=== PATIENT | male | born 1965 | race Caucasian/White ===

== ENCOUNTER 2025-02-08 12:11 | Inpatient (IN) | payer MEDICAID, SELFPAY ==
[2025-02-08] VITALS (7 sets, daily range): BP systolic 136–186; BP diastolic 78–107; PULSE 67–94; RESP 14–16; TEMP 36.6–37.2; O2SAT 94–99; BMI 27.2
--- NOTE | 2025-02-08 13:20 | PD.EDRME ---
Rapid Medical Screening Exam RME Arrival date/time: 02/08/25 12:11 Vital signs: Vital Signs Temperature 97.8 F 02/08/25 12:17 Pulse Rate 94 02/08/25 12:17 Respiratory Rate 16 02/08/25 12:17 Blood Pressure 136/87 H 02/08/25 12:17 Pulse Oximetry (%) 98 02/08/25 12:17 98% room air Vital signs reviewed by provider: Yes RME Narrative: 59-year-old male presents to the urgent care with complaint of weakness as well as a sensation of feeling impaired and not being able to pass stool x 2 days.
[2025-02-08 14:29] LABS: Basophils # (Auto) 0.1 Thou/mm3 (0.0-0.2); Basophils % (Auto) 0 % (0-2.5); Eosinophils # (Auto) 0.0 Thou/mm3 (0.0-0.5); Eosinophils % (Auto) 0 % (0-10); Hematocrit 49.0 % (41.0-53.0); Hemoglobin 16.5 g/dL (13.5-16.0); Immature Granulocytes Auto 0.11 Thou/mm3 (0.00-0.00); Lymphocytes # (Auto) 1.5 Thou/mm3 (1.0-4.8); Lymphocytes % (Auto) 7 % (10-50); Mean Corpuscular HGB Conc 33.7 g/dl (31.0-37.0); Mean Corpuscular Hemoglobin 29.1 pg (25.0-35.0); Mean Corpuscular Volume 86 fL (80-100); Monocytes # (Auto) 1.1 Thou/mm3 (0.0-0.8); Monocytes % (Auto) 5 % (0-12); Neutrophils # (Auto) 19.7 Thou/mm3 (1.8-7.7); Neutrophils % (Auto) 88 % (37-80); Nucleated Red Blood Cell # 0.00 Thou/mm3 (0.00-0.00); Nucleated Red Blood Cell % 0 /100 WBC (0); Platelet Count 392 Thou/mm3 (140-440); RDW Standard Deviation 42.2 fL (35.1-43.9); Red Blood Count 5.67 Miln/mm3 (4.50-5.90); White Blood Count 22.5 Thou/mm3 (3.8-10.6)
[2025-02-08 14:53] LABS: Alanine Aminotransferase 14 U/L (10-49); Albumin, Serum 4.8 gm/dL (3.5-5.0); Albumin/Globulin Ratio 1.6 (1.2-2.2); Alkaline Phosphatase 104 U/L (46-116); Anion Gap 13 (7-16); Aspartate Amino Transferase 18 U/L (0-34); BUN/Creatinine Ratio 19 Ratio (12-20); Bilirubin,Total 0.8 mg/dL (0.3-1.2); Blood Urea Nitrogen 43 mg/dL (9-23); Calcium 9.8 mg/dL (8.3-10.6); Calcium (Corrected) 9.8 mg/dL (8.5-10.1); Carbon Dioxide 28.8 mMol/L (20.0-31.0); Chloride 98 mMol/L (98-107); Creatinine (Component) 2.3 mg/dL (0.6-1.3); Estimated Creatinine Clearance 35.7 mL/min (>60); Globulin 3.0 gm/dL (2.3-3.5); Glucose 156 mg/dL (74-106); Lipase 39 U/L (12-53); Osmolality,Calculated 293 (275-295); Potassium 3.0 mMol/L (3.4-5.1); Sodium 140 mMol/L (136-145); Total Protein 7.8 gm/dL (5.7-8.2); eGFR 32 See Note
--- NOTE | 2025-02-08 17:53 | PC.NURSE ---
no answer called to be vital
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
[2025-02-08] MEDS: SODIUM CHLORIDE 0.9% 1000 ML 1,000 ML 999 ML IV (19:11)
[2025-02-08] MEDS: POTASSIUM CHLORIDE 10% 20 MEQ/15 ML UDC 40 MEQ GT (19:12)
--- NOTE | 2025-02-08 19:39 | XR_ITS ---
Examination: CT abdomen and pelvis without contrast. Coronal 3-D reconstructions. Sagittal 2-D reconstructions. Date and time of exam:February 08, 2025, 1921 hours INDICATIONS: Abdominal pain and rectal pain and vomiting today CTDI: vol (mGy): 8.65 DLP: (mGycm): 593. Technique: Axial images of the abdomen have been obtained, 3 mm slice thickness Intravenous contrast material has not been administered. Low dose protocols were performed. One or more of the following dose reduction techniques were used; automated exposure control, adjustment of the mA and/or KV according to patient size, use of iterative reconstruction technique. Findings: No focal liver or splenic lesions Distended gallbladder No pancreatic mass Mild nodular thickening left adrenal gland Left renal artery calcification No hydronephrosis. 20 mm fat-containing umbilical hernia Aortic calcification no aneurysmal dilatation Normal appendix No bowel obstruction Normal seminal vesicles No significant prostatomegaly No bladder mass Rectal wall is diffusely and significantly thickened, axial images 247 Fat-containing inguinal hernias Mild osteopenia IMPRESSION: Normal appendix No bowel obstruction Distended gallbladder, recommend hepatobiliary sonography follow-up Rectal wall is diffusely and significantly thickened, differential would include proctitis, rectal tumor not excluded, recommend direct inspection
[2025-02-08] MEDS: SODIUM CHLORIDE 0.9% 1000 ML 1,000 ML 100 ML IV (21:12)
[2025-02-08] MEDS: cefTRIAXone/D5w 1gm IV premix 1 GM/50 ML BAG IV (21:14)
--- NOTE | 2025-02-08 21:29 | PC.NURSE ---
Addendum entered by Tessy Ordaz RN 02/08/25 21:38: THIS RN INFORMED DE MARCO PATIENT UNABLE TO VOID SINCE ARRIVAL TO ER Original Note: THIS RN INFORMED DE MARCO OF PATIENTS BLOOD PRESSURE BEING ELEVATED. NO VERBAL ORDERS RECIEVED. PENDING ORDERS.
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
[2025-02-08] MEDS: RINGERS LACTATED 1000 ML 1,000 ML 999 ML IV (22:42)
[2025-02-09] VITALS (10 sets, daily range): BP systolic 132–194; BP diastolic 68–108; PULSE 60–109; RESP 12–18; TEMP 36.2–36.8; O2SAT 93–98; BMI 26.4
[2025-02-09] MEDS: hydrALAZINE INJ 20 MG/ML VIAL 10 MG IVP ×2 (00:01→17:02)
[2025-02-09 00:08] LABS: Procalcitonin 0.25 ng/ml (0.0-0.49); Thyroid Stimulating Hormone 1.24 uIU/mL (0.55-4.78)
[2025-02-09] MEDS: metroNIDAZOLE/NS 500 MG IVPB 500 MG/100 ML BAG 200 MG IV ×4 (00:56→22:52)
[2025-02-09 00:58] LABS: Collection Type, Urine Clean Catch; Squamous Epithelial Cell,Urine 0 /hpf (0-5)
[2025-02-09 01:14] LABS: Bilirubin,Urine Negative (Negative); Blood,Urine Negative (Negative); Clarity,Urine Clear (Clear/Hazy); Color,Urine Yellow (Lt Yel-Yel); Glucose, Urine 4+ (Negative); Hyaline Casts,Urine < 1 /hpf (0-1); Ketones,Urine Negative (Negative); Leukocyte Esterase,Urine Negative (Negative); Nitrite,Urine Negative (Negative); PH,Urine 5.5 (5.0-7.0); Protein,Urine Trace (Neg - Trace); RBC,Urine 1 /hpf (0-3); Specific Gravity,Urine 1.022 (1.001-1.035); Urobilinogen,Urine Negative mg/dL (0.0-1.0); WBC,Urine 1 /hpf (0-5)
[2025-02-09 01:19] LABS: Amphetamine/Methamp Scrn,U Negative (Negative); Barbiturate Screen,Urine Negative (Negative); Benzodiazepines Screen,Urine Negative (Negative); Benzoylecgonine Screen, Ur Negative (Negative); Fentanyl Screen,Urine Negative (Negative); Opiate Screen,Urine Negative (Negative); THC Screen,Urine Negative (Negative)
[2025-02-09] MEDS: CIPROFLOXACIN/D5w 400 MG IVPB 400 MG/200 ML BAG 200 MG IV ×3 (01:50→22:52)
--- NOTE | 2025-02-09 02:06 | PC.NURSE ---
per pt, family will bring in medications today for med rec
[2025-02-09 05:10] LABS: Basophils # (Auto) 0.1 Thou/mm3 (0.0-0.2); Basophils % (Auto) 0 % (0-2.5); Eosinophils # (Auto) 0.3 Thou/mm3 (0.0-0.5); Eosinophils % (Auto) 2 % (0-10); Hematocrit 40.0 % (41.0-53.0); Hemoglobin 13.1 g/dL (13.5-16.0); Immature Granulocytes Auto 0.05 Thou/mm3 (0.00-0.00); Lymphocytes # (Auto) 2.7 Thou/mm3 (1.0-4.8); Lymphocytes % (Auto) 19 % (10-50); Mean Corpuscular HGB Conc 32.8 g/dl (31.0-37.0); Mean Corpuscular Hemoglobin 28.5 pg (25.0-35.0); Mean Corpuscular Volume 87 fL (80-100); Monocytes # (Auto) 1.0 Thou/mm3 (0.0-0.8); Monocytes % (Auto) 7 % (0-12); Neutrophils # (Auto) 9.7 Thou/mm3 (1.8-7.7); Neutrophils % (Auto) 71 % (37-80); Nucleated Red Blood Cell # 0.00 Thou/mm3 (0.00-0.00); Nucleated Red Blood Cell % 0 /100 WBC (0); Platelet Count 296 Thou/mm3 (140-440); RDW Standard Deviation 41.6 fL (35.1-43.9); Red Blood Count 4.59 Miln/mm3 (4.50-5.90); White Blood Count 13.7 Thou/mm3 (3.8-10.6)
[2025-02-09 05:26] LABS: INR 1.0 (0.9-1.3); Partial Thromboplastin Time 31.6 Seconds (22.0-36.0); Prothrombin Time 11.2 Seconds (9.0-12.2)
[2025-02-09 05:29] LABS: Glucose Estimated Average 140 mg/dL (80-131); Hemoglobin A1C 6.5 % Hgb (4.8-6.0)
[2025-02-09 06:34] LABS: Alanine Aminotransferase 8 U/L (10-49); Albumin, Serum 3.8 gm/dL (3.5-5.0); Albumin/Globulin Ratio 1.7 (1.2-2.2); Alkaline Phosphatase 79 U/L (46-116); Anion Gap 9 (7-16); Aspartate Amino Transferase 15 U/L (0-34); BUN/Creatinine Ratio 19 Ratio (12-20); Bilirubin,Total 0.5 mg/dL (0.3-1.2); Blood Urea Nitrogen 36 mg/dL (9-23); Calcium 8.6 mg/dL (8.3-10.6); Calcium (Corrected) 8.8 mg/dL (8.5-10.1); Carbon Dioxide 27.0 mMol/L (20.0-31.0); Chloride 105 mMol/L (98-107); Creatinine (Component) 1.9 mg/dL (0.6-1.3); Estimated Creatinine Clearance 43.2 mL/min (>60); Globulin 2.2 gm/dL (2.3-3.5); Glucose 93 mg/dL (74-106); Magnesium 2.0 mg/dL (1.6-2.6); Osmolality,Calculated 289 (275-295); Phosphorous 2.3 mg/dL (2.4-5.1); Sodium 141 mMol/L (136-145); Total Protein 6.0 gm/dL (5.7-8.2); eGFR 40 See Note
[2025-02-09 06:43] LABS: Potassium 2.6 mMol/L (3.4-5.1)
[2025-02-09] MEDS: SODIUM CHLORIDE 0.9% 1000 ML 1,000 ML 100 ML IV (08:36)
[2025-02-09] MEDS: HEPARIN SOD INJ 5000 UNIT/ML VIAL SC ×2 (08:37→22:52)
--- NOTE | 2025-02-09 09:57 | PC.SS ---
[id number]-Pt is a 59 y/o M with PMHx significant for HFpEF, CVA, hypertension, CKD stage III, diabetes presenting with chief complaints of constipation x 2 days with associated rectal pain, admitted for proctitis and PAMELLA, as per medical provider H & P note. Pt is being treated for proctitis, fecal impaction and infection, rectal mass along with constipation. Pt is on IV antibiotics. At this time there is no d/c date. Per pts sister Lynn Fields [phone], she reports that for the past week, but has been unstable and not his norm. Lynn reports he has been walking unsteady and is incontinent. Lynn reports pt has been defecating on himself and stated, It is everywhere. Lynn reported that the person who care takes for the pt is their 91 yo mother who is not able to care for him. Lynn reported she tries to help, but she herself is ill and reports the pt is a burden on their family. Lynn suggested that a SNF would be better suited for the pt, as she and her mother are unable to care take for him. Lynn reported that the pt suffered from a stroke about a year ago and ever since then, he has not has use of his left arm, which makes it difficult to ambulate. Lynn reported the pt does not use DME because pts refuses to use it. Pt does not do his own ADLs, such as cooking and cleaning and she and her mother do it all for the pt. Pt is able to shower himself with assistance. Lynn reported the pt is a Full Code and she is the alternate Decision Maker if pt is not able to make his own decisions. Pts PCP is Dr. Reeves at [facility] [address] and his pharmacy is [facility]. Plan is to return home once d/c Alternate Decision maker: Lynn Fields [phone] Full Code
[2025-02-09] MEDS: POTASSIUM CHL 10 mEq IVPB 10 MEQ/100 ML BAG 100 MEQ IV ×6 (10:02→15:00)
[2025-02-09] MEDS: NAPH,KPH MBDB 1 PACKET (1.5 GM) PO ×2 (10:02→22:52)
--- NOTE | 2025-02-09 10:09 | ESPR_ITS ---
<Statement entered by Abdulaziz Hutson MD - 02/09/25 21:56> Pt is seen at bedside, states he is in significant pain in his rectum. Pt states the pain started 3 days ago and denies previous episodes of similar symptoms. Pt is passing gas however he states he has had a BM in several days (3 days atleast). Will continue monitor and pending GI recs. Patient was seen and examined by me personally. I have directly supervised and reviewed documentation by the team resident and agree with its findings. ------- Plan of care was discussed with the attending, Dr. Britt Hutson, PGY-2 Documentation for date of: 02/09/25 Subjective Subjective Interval history: Overnight events: No acute events overnight. Patient admitted overnight. Patient was seen and examined at bedside. AM vitals and labs reviewed. Patient's anal pain is not significantly improved compared to when he was in the ED. Patient still feels constipated. Passing gas well. Loose stool noticed around erythematous and tender anus. Otherwise no complaints at this time. Still pending home med rec. Review of systems otherwise negative except for what is mentioned above. Exam Vital Signs Temp Pulse Resp BP Pulse Ox O2 Del Method 97.1 F 74 16 150/87 H 95 Room Air 02/09/25 08:00 02/09/25 08:00 02/09/25 08:00 02/09/25 08:00 02/09/25 08:00 02/09/25 08:00 Narrative Exam Physical Exam: General: Alert, no acute distress. Skin: Warm, dry, intact, no obvious rash. Head: Normocephalic, atraumatic. Eye: Normal conjunctiva, PERRL. Throat: Oral mucosa moist. No obvious lesions in oropharynx. Cardiovascular: Regular rate and rhythm, no murmur, +S1/S2. Respiratory: Lungs are clear to auscultation, respirations unlabored, no crackles, no wheezing. Gastrointestinal: Soft, nontender, non-distended. No guarding or rebound tenderness. Extremities: No edema, no cyanosis, no clubbing. 2+ radial pulse bilaterally, 2+ pedal pulse bilaterally. Anus erythematous and tender with loose, brown stool visible in and around anus. Neuro: No focal deficits observed. Conversant, moving all extremities. No overt cerebellar signs/incoordination. Psychiatric: Cooperative, appropriate affect. Objective Labs 02/09/25 04:27 02/09/25 16:23 Labs: Laboratory Results - last 24 hr 02/08/25 02/08/25 02/09/25 14:04 22:30 00:50 WBC 22.5 H RBC 5.67 Hgb 16.5 H Hct 49.0 MCV 86 MCH 29.1 MCHC 33.7 RDW Std Deviation 42.2 Plt Count 392 Neut % (Auto) 88 H Lymph % (Auto) 7 L Desha % (Auto) 5 Eos % (Auto) 0 Baso % (Auto) 0 Neut # (Auto) 19.7 H Lymph # (Auto) 1.5 Desha # (Auto) 1.1 H Eos # (Auto) 0.0 Baso # (Auto) 0.1 Immature Gran # (Auto) 0.11 H Absolute Nucleated RBC 0.00 Immature Gran % 1 H Nucleated RBC % 0 PT INR APTT Sodium 140 Potassium 3.0 L Chloride 98 Carbon Dioxide 28.8 Anion Gap 13 BUN 43 H Creatinine 2.3 H Estim Creat Clear Calc 35.7 L eGFR 32 L BUN/Creatinine Ratio [address] Glu mg/dL Hemoglobin A1c Calculated Osmolality 293 Calcium 9.8 Corrected Calcium 9.8 Phosphorus Magnesium Total Bilirubin 0.8 AST 18 ALT 14 Alkaline Phosphatase 104 Total Protein 7.8 Albumin 4.8 Globulin 3.0 Albumin/Globulin Ratio 1.6 Lipase 39 Procalcitonin Cancelled 0.25 TSH 1.24 Ur Collection Type Clean Catch Urine Color Yellow Urine Clarity Clear Urine pH 5.5 Ur Specific [place] 1.022 Urine Protein Trace Urine Glucose (UA) 4+ A Urine Ketones Negative Urine Blood Negative Urine Nitrite Negative Urine Bilirubin Negative Urine Urobilinogen (Auto) Negative Ur Leukocyte Esterase Negative Urine RBC 1 Urine WBC 1 Ur Squamous Epith Cells 0 Urine Bacteria None Hyaline Casts < 1 Urine Opiates Screen Negative Urine Fentanyl Screen Negative Ur Barbiturates Screen Negative U Amphetamin/Meth Scrn Negative U Benzodiazepines Scrn Negative U Cocaine Metab Screen Negative U Marijuana (THC) Screen Negative 02/09/25 04:27 WBC 13.7 H D RBC 4.59 Hgb 13.1 L D Hct 40.0 L MCV 87 MCH 28.5 MCHC 32.8 RDW Std Deviation 41.6 Plt Count 296 D Neut % (Auto) 71 Lymph % (Auto) 19 Desha % (Auto) 7 Eos % (Auto) 2 Baso % (Auto) 0 Neut # (Auto) 9.7 H Lymph # (Auto) 2.7 Desha # (Auto) 1.0 H Eos # (Auto) 0.3 Baso # (Auto) 0.1 Immature Gran # (Auto) 0.05 H Absolute Nucleated RBC 0.00 Immature Gran % 0 Nucleated RBC % 0 PT 11.2 INR 1.0 APTT 31.6 Sodium 141 Potassium 2.6 L* Chloride 105 Carbon Dioxide 27.0 Anion Gap 9 BUN 36 H Creatinine 1.9 H Estim Creat Clear Calc 43.2 L eGFR 40 L BUN/Creatinine Ratio [address] Glu mg/dL 140 H Hemoglobin A1c 6.5 H Calculated Osmolality 289 Calcium 8.6 Corrected Calcium 8.8 Phosphorus 2.3 L Magnesium 2.0 Total Bilirubin 0.5 AST 15 ALT 8 L Alkaline Phosphatase 79 D Total Protein 6.0 Albumin 3.8 D Globulin 2.2 L Albumin/Globulin Ratio 1.7 Lipase Procalcitonin TSH Ur Collection Type Urine Color Urine Clarity Urine pH Ur Specific [place] Urine Protein Urine Glucose (UA) Urine Ketones Urine Blood Urine Nitrite Urine Bilirubin Urine Urobilinogen (Auto) Ur Leukocyte Esterase Urine RBC Urine WBC Ur Squamous Epith Cells Urine Bacteria Hyaline Casts Urine Opiates Screen Urine Fentanyl Screen Ur Barbiturates Screen U Amphetamin/Meth Scrn U Benzodiazepines Scrn U Cocaine Metab Screen U Marijuana (THC) Screen Quality Measures Quality Measures none Assessment & Plan Assessment Current Active Medications: Generic Name Dose Route Start Last Admin Trade Name Freq PRN Reason Stop Dose Admin Acetaminophen 650 mg 02/08/25 21:45 Acetaminophen 325 Mg Tablet PO 03/10/25 21:44 Q6H PRN Fever >100.4 or pain Hydrocodone Bitart/Acetaminophen 1 tab 02/08/25 21:45 Hydrocodone/Apap 5/325 Tablet PO 02/13/25 21:44 Q4HR PRN PAIN SCALE 4-10(Mod-Sev Dextrose 25 ml 02/08/25 21:45 Dextrose 50%-Water Inj 50 Ml Syringe IV 03/10/25 21:44 Q15MIN PRN BG 50-70 responsive npo pt Dextrose 50 ml 02/08/25 21:45 Dextrose 50%-Water Inj 50 Ml Syringe IV 03/10/25 21:44 Q15MIN PRN BG <50 OR BG <70 & pt unresponsive Glucagon 1 mg 02/08/25 21:45 Glucagon Inj 1 Mg Vial IM Q15MIN PRN BG <70, and no IV access Heparin Sodium (Porcine) 5,000 unit 02/09/25 09:00 02/09/25 08:37 Heparin Sod Inj 5000 Unit/Ml Vial SC 02/23/25 08:59 5,000 unit Q12HR AGA Administration Hydralazine HCl 10 mg 02/08/25 22:31 02/09/25 00:01 Hydralazine Inj 20 Mg/Ml Vial IVP 03/10/25 22:30 10 mg Q6HR PRN Administration SBP > 180 or DBP>100 Sodium Chloride 1,000 mls @ 100 mls/hr 02/08/25 20:34 02/09/25 08:36 Ns IV 03/10/25 20:33 100 mls/hr .Q10H AGA Administration Ciprofloxacin/Dextrose 400 mg in 200 mls @ 200 mls/hr 02/09/25 09:00 02/09/25 08:36 Cipro Ivpb IV 02/16/25 08:59 200 mls/hr Q12HR AGA Administration Metronidazole 500 mg in 100 mls @ 200 mls/hr 02/09/25 06:00 02/09/25 05:49 Flagyl 500 Mg Iv IV 02/16/25 05:59 200 mls/hr Q8HR AGA Administration Potassium Chloride 10 meq in 100 mls @ 100 mls/hr 02/09/25 08:53 02/09/25 10:02 Kcl Ivpb IV 02/09/25 14:52 100 mls/hr Q1H AGA Administration Insulin Human Lispro 0 unit 02/09/25 07:30 02/09/25 07:26 Insulin Lispro (Admelog) 1 Unit/0.01 Ml Unit SC 03/11/25 07:29 Not Given AC AGA Protocol Ondansetron HCl 4 mg 02/08/25 21:45 Ondansetron Inj 2 Mg/Ml Inj 2 Ml IVP 03/10/25 21:44 Q6H PRN NAUSEA OR VOMITING Protocol Potassium Phos/Sodium Phos 1 packet 02/09/25 09:00 02/09/25 10:02 Naph,Kp Mbdb 1 Packet (1.5 Gm) PO 02/09/25 21:01 1 packet BID [facility] Administration Plan Mr. Fields is a 59 year old male with a history of HFpEF (EF 55-60% 2022), HTN, T2DM, CKD stage III, and CVA who presented to [facility] ED on 02/08 for 2-3 days of constipation and rectal pain. The patient was admitted for proctitis and PAMELLA on CKD. #Proctitis #Constipation Patient presented to ED with ? Continue ciprofloxacin 400 mg IV every 12 hours [02/08--] ? Continue metronidazole 500 mg IV every 8 hours [02/08--] ? GI consulted, appreciate recommendations ? Patient put on clear liquid diet with renal, cardiac, and consistent low-carb modifications ? Blood culture collected 02/08, pending results ? [place] 5/325 as needed for pain #PAMELLA on CKD stage III, likely prerenal #Anuria (resolved) Patient presented to the ED with BUN 43, creatinine 2.3, GFR 32. Patient has a known history of CKD stage III. ? Continue strict I's and O's ? Avoid nephrotoxic medications ? Renally dose medications ? Monitor daily labs ? Patient made urine on 02/09 in the AM ? Bladder scan every 4 hour to identify if patient is retaining urine #Hypokalemia #Hypophosphatemia Patient presented to ED with potassium of 3.0, which later decreased to 2.6 on 02/09 a.m. labs. Patient also had phosphorus of 2.3. ? Potassium replenished on 02/09 with potassium chloride tablet 40 mill equivalents and started potassium chloride IV 60 mill equivalents ? Ordered renal panel for afternoon 02/09 ? Will continue to monitor with daily labs #Hypertensive urgency #Primary Hypertension Patient has a history of hypertension and hypertensive urgency. In the ED, the patient had a blood pressure of 186/101. ? Continue hydralazine 10 mg every 6 hours as needed if SBP >180 or DBP > 100 ? Will continue to monitor #HFpEF, EF 55-60% (2022) Patient has a history of heart failure that was initially managed in 2022. The patient had received an echocardiogram in 2022, which showed normal LV size and function, estimated ejection fraction of 55 to 60%, grade 2 diastolic dysfunction and mild LVH. ? Continue to monitor patient, pending med rec #Non-insulin dependent type 2 diabetes mellitus Patient has a history of diabetes. A1c of 6.5% on 02/09/2025. Pt takes Januvia 50mg and trulicity 0.75mg at home - Insulin sliding scale ordered - Hypoglycemia protocol ordered - Acu-checks ACHS #CVA without residual deficits Patient has history of CVA 1 year ago without residual deficits. Patient does not recall the medications he is taking. - Pending home med rec DVT Prophylaxis: Heparin GI Prophylaxis: N/A Bowel: N/A Diet: Carbohydrate consistent, cardiac, renal, clear liquid [place]: N/A Lines: Peripheral IV Antibiotics: Ciprofloxacin and Metronidazole (02/08--) Code Status: FULL Reason for Hospitalization: Proctitis and PAMELLA Other Barriers to Discharge: GI consultation Patient plan of care was discussed with the senior resident Dr. Hutson (PGY-2) and attending physician Dr. De La Torre. Rosendo Ramirez, PGY1 Attending Provider Attestation/Addendum I attest that I was physically present for the evaluation, physical examination, lab and imaging review of the patient with the residents. I discussed the case with the residents and agree with the findings and plans of care as documented above. Patient is a 59 years old male with past medical history of HFpEF, CVA, hypertension, CKD, diabetes mellitus who presented to the ED with complaint of constipation and rectal pain. Patient was then admitted overnight for management of proctitis, possible fecal impaction and PAMELLA on CKD. At bedside today, patient continues to complain of rectal pain whenever he is trying to have a bowel movement. His last bowel movement was 3 days ago but he has been passing gas. Denies any nausea or vomiting. Continues to be on IV ciprofloxacin and metronidazole for proctitis. Cultures are pending. Gastroenterology on board. WBC count has been downtrending. Kidney function has improved, BUN/creatinine of 31/1.9 today. Noted to have potassium of 2.6, phosphorus 2.3, repleted accordingly. Patient noted to be hypertensive, we will start antihypertensives. Started on sliding scale for diabetes mellitus. Keisha De La Torre MD
--- NOTE | 2025-02-09 15:14 | PC.NURSE ---
Spoke to Connie at [facility] medical records for pt Medication list, she will fax them over
[2025-02-09] MEDS: SENNA/DOCUSATE SOD 1 TAB TABLET PO (16:22)
[2025-02-09] MEDS: POLYETHYLENE GLYCOL 17 GM PACKET PO (16:22)
[2025-02-09 16:53] LABS: Albumin, Serum 3.9 gm/dL (3.5-5.0); Anion Gap 8 (7-16); BUN/Creatinine Ratio 16 Ratio (12-20); Blood Urea Nitrogen 31 mg/dL (9-23); Calcium 8.8 mg/dL (8.3-10.6); Calcium (Corrected) 8.9 mg/dL (8.5-10.1); Carbon Dioxide 27.6 mMol/L (20.0-31.0); Chloride 104 mMol/L (98-107); Creatinine (Component) 1.9 mg/dL (0.6-1.3); Estimated Creatinine Clearance 43.2 mL/min (>60); Glucose 88 mg/dL (74-106); Osmolality,Calculated 284 (275-295); Phosphorous 2.0 mg/dL (2.4-5.1); Potassium 3.9 mMol/L (3.4-5.1); Sodium 140 mMol/L (136-145); eGFR 40 See Note
--- NOTE | 2025-02-09 22:07 | PD.IMCONS ---
HPI Data of Consult Requesting Physician: Keisha De La Torre MD Primary Care Provider: Milton Bustamante PA-C Consult Narrative Reason for consult: Increasing constipation proctitis abnormal CTAP, rectal pain History of present illness: 59 years old male comes in for evaluation to the emergency room and subsequently got admitted for multiplicity of medical issues From a GI viewpoint patient has been having nausea and constipated CT scan of the abdomen pelvis without contrast showed rectal wall thickening possibility of a infiltrating carcinoma with stool impaction I have been consulted cc:: cc: Keisha De La Torre MD Review of Systems Review of Systems Systems Reviewed: All systems reviewed, normal except as documented Past Medical History Surgical History OTHER SURGICAL HX: As in the history of present illness Meds Home Medications and Allergies Home Medications ?Medication ?Instructions ?Recorded ?Confirmed ?Type No Known Home Medications 03/09/21 07/16/22 History Allergies Allergy/AdvReac Type Severity Reaction Status Date / Time No Known Allergies Allergy Verified 02/08/25 12:28 Exam Vital Signs Temp Pulse Resp BP Pulse Ox O2 Del Method 97.4 F 85 18 152/98 H 96 Room Air 02/09/25 20:00 02/09/25 20:00 02/09/25 20:00 02/09/25 20:00 02/09/25 20:00 02/09/25 20:00 Constitutional Comments: Chronically ill-appearing Routine Respiratory Exam Comments: Normal to auscultation Routine Abdominal Exam Comments: Soft nontender Results Labs 02/09/25 04:27 02/09/25 16:23 Labs: Short CBC 02/09/25 Range/Units 04:27 WBC 13.7 H D (3.8-10.6) Thou/mm3 Hgb 13.1 L D (13.5-16.0) g/dL Hct 40.0 L (41.0-53.0) % Plt Count 296 D (140-440) Thou/mm3 BMP 02/09/25 02/09/25 04:27 16:23 Sodium 141 140 Potassium 2.6 L* 3.9 D Chloride 105 104 Carbon Dioxide 27.0 27.6 BUN 36 H 31 H Creatinine 1.9 H 1.9 H Glucose 93 D 88 Calcium 8.6 8.8 Liver Function 02/09/25 02/09/25 Range/Units 04:27 16:23 Total Bilirubin 0.5 (0.3-1.2) mg/dL AST 15 (0-34) U/L ALT 8 L (10-49) U/L Alkaline Phosphatase 79 D (46-116) U/L Albumin 3.8 D 3.9 (3.5-5.0) gm/dL Urine 02/09/25 Range/Units 00:50 Urine Color Yellow (Lt Yel-Yel) Urine Clarity Clear (Clear/Hazy) Urine pH 5.5 (5.0-7.0) Ur Specific [place] 1.022 (1.001-1.035) Urine Protein Trace (Neg - Trace) Urine Glucose (UA) 4+ A (Negative) Assessment and Plan Additional Assessment & Plan Additional Plan: # Rectal pain # abnormal CT scan of the abdomen pelvis showing thickening of the rectal wall # Change in bowel habits with increasing constipation plan clear liquid diet GoLytely prep Consent obtained for fiberoptic colonoscopy with possible biopsy possible therapeutic intervention under intravenous moderate sedation Will follow the patient
[2025-02-09] MEDS: NA SU/NAHCO3/KC/PEG (Golytely) 4,000 ML BTL 4000 ML PO (22:53)
[2025-02-09] MEDS: HYDROcodone/APAP 5/325 TABLET 1 TAB PO (23:51)
[2025-02-10] VITALS (24 sets, daily range): BP systolic 117–215; BP diastolic 74–127; PULSE 76–118; RESP 14–19; TEMP 36.1–36.7; O2SAT 94–100; BMI 27.0
[2025-02-10] MEDS: metroNIDAZOLE/NS 500 MG IVPB 500 MG/100 ML BAG 200 MG IV ×3 (05:04→23:13)
[2025-02-10] MEDS: hydrALAZINE INJ 20 MG/ML VIAL 10 MG IVP ×2 (05:05→12:11)
[2025-02-10 06:08] LABS: Basophils # (Auto) 0.1 Thou/mm3 (0.0-0.2); Basophils % (Auto) 1 % (0-2.5); Eosinophils # (Auto) 0.5 Thou/mm3 (0.0-0.5); Eosinophils % (Auto) 4 % (0-10); Hematocrit 38.9 % (41.0-53.0); Hemoglobin 13.3 g/dL (13.5-16.0); Immature Granulocytes Auto 0.04 Thou/mm3 (0.00-0.00); Lymphocytes # (Auto) 2.9 Thou/mm3 (1.0-4.8); Lymphocytes % (Auto) 25 % (10-50); Mean Corpuscular HGB Conc 34.2 g/dl (31.0-37.0); Mean Corpuscular Hemoglobin 29.4 pg (25.0-35.0); Mean Corpuscular Volume 86 fL (80-100); Monocytes # (Auto) 0.8 Thou/mm3 (0.0-0.8); Monocytes % (Auto) 7 % (0-12); Neutrophils # (Auto) 7.2 Thou/mm3 (1.8-7.7); Neutrophils % (Auto) 63 % (37-80); Nucleated Red Blood Cell # 0.00 Thou/mm3 (0.00-0.00); Nucleated Red Blood Cell % 0 /100 WBC (0); Platelet Count 285 Thou/mm3 (140-440); RDW Standard Deviation 40.6 fL (35.1-43.9); Red Blood Count 4.53 Miln/mm3 (4.50-5.90); White Blood Count 11.5 Thou/mm3 (3.8-10.6)
[2025-02-10 07:01] LABS: Alanine Aminotransferase 9 U/L (10-49); Albumin, Serum 3.8 gm/dL (3.5-5.0); Albumin/Globulin Ratio 1.7 (1.2-2.2); Alkaline Phosphatase 75 U/L (46-116); Anion Gap 15 (7-16); Aspartate Amino Transferase 19 U/L (0-34); BUN/Creatinine Ratio 15 Ratio (12-20); Bilirubin,Total 0.5 mg/dL (0.3-1.2); Blood Urea Nitrogen 27 mg/dL (9-23); Calcium 8.7 mg/dL (8.3-10.6); Calcium (Corrected) 8.9 mg/dL (8.5-10.1); Carbon Dioxide 22.1 mMol/L (20.0-31.0); Chloride 103 mMol/L (98-107); Creatinine (Component) 1.8 mg/dL (0.6-1.3); Estimated Creatinine Clearance 45.6 mL/min (>60); Globulin 2.2 gm/dL (2.3-3.5); Glucose 75 mg/dL (74-106); Magnesium 1.5 mg/dL (1.6-2.6); Osmolality,Calculated 283 (275-295); Phosphorous 2.2 mg/dL (2.4-5.1); Potassium 2.9 mMol/L (3.4-5.1); Sodium 140 mMol/L (136-145); Total Protein 6.0 gm/dL (5.7-8.2); eGFR 43 See Note
[2025-02-10] MEDS: HEPARIN SOD INJ 5000 UNIT/ML VIAL SC (08:47)
[2025-02-10] MEDS: POLYETHYLENE GLYCOL 17 GM PACKET PO (08:47)
[2025-02-10] MEDS: POTASSIUM CHL 10 mEq IVPB 10 MEQ/100 ML BAG 100 MEQ IV ×6 (08:49→14:49)
[2025-02-10] MEDS: CIPROFLOXACIN/D5w 400 MG IVPB 400 MG/200 ML BAG 200 MG IV ×2 (08:50→23:22)
[2025-02-10] MEDS: Magnesium Sulfate 4 GM Ivpb 4 GM/50 ML BAG IV (08:50)
[2025-02-10] MEDS: NAPH,KPH MBDB 1 PACKET (1.5 GM) PO (08:51)
--- NOTE | 2025-02-10 09:24 | ESPR_ITS ---
<Statement entered by Buffy Talley MD - 02/10/25 14:35> Patient was seen and examined at bedside. I agree on the assessment and plan on this note as documented by resident Rosendo Ramirez PGY1. Patient admitted for proctitis yesterday, currently at bedside denies any pain. Patient reports that his anal pain has resolved, is scheduled for colonoscopy with gastroenterology today, patient has significant hypokalemia, potassium will be repleted, will repeat BMP later today. Will continue to cover with IV antibiotics, Cipro and Flagyl will be continued. Patient's blood pressure is elevated, will resume home dose hydralazine and metoprolol tartrate. Will consider starting patient on nifedipine in a.m. if patient's blood pressure continues to remain elevated., Pending stool studies., Disposition MedSurg, pending colonoscopy. Case discussed with attending Dr. Josie Talley MD PGY-2 Documentation for date of: 02/10/25 Subjective Subjective Interval history: Overnight events: No acute events overnight. Patient was seen and examined at bedside. AM vitals and labs reviewed. Patient states that his anal pain is better compared to yesterday. Pending colonoscopy today. Repleted potassium and magnesium and phosphrous today. Will repeat BMP and magnesium this afternoon. Continue with ciprofloxacin and Flagyl. Review of systems otherwise negative except for what is mentioned above. Exam Vital Signs Temp Pulse Resp BP Pulse Ox O2 Del Method 97 F 85 16 138/74 H 95 Room Air 02/10/25 08:00 02/10/25 08:00 02/10/25 08:00 02/10/25 08:00 02/10/25 08:00 02/10/25 08:00 Objective Labs 02/10/25 04:44 02/10/25 15:20 Labs: Laboratory Results - last 24 hr 02/09/25 02/10/25 16:23 04:44 WBC 11.5 H RBC 4.53 Hgb 13.3 L Hct 38.9 L MCV 86 MCH 29.4 MCHC 34.2 RDW Std Deviation 40.6 Plt Count 285 Neut % (Auto) 63 Lymph % (Auto) 25 [place] % (Auto) 7 Eos % (Auto) 4 Baso % (Auto) 1 Neut # (Auto) 7.2 Lymph # (Auto) 2.9 [place] # (Auto) 0.8 Eos # (Auto) 0.5 Baso # (Auto) 0.1 Immature Gran # (Auto) 0.04 H Absolute Nucleated RBC 0.00 Immature Gran % 0 Nucleated RBC % 0 Sodium 140 140 Potassium 3.9 D 2.9 L D Chloride 104 103 Carbon Dioxide 27.6 22.1 Anion Gap 8 15 BUN 31 H 27 H Creatinine 1.9 H 1.8 H Estim Creat Clear Calc 43.2 L 45.6 L eGFR 40 L 43 L BUN/Creatinine Ratio 16 15 Glucose 88 75 Calculated Osmolality 284 283 Calcium 8.8 8.7 Corrected Calcium 8.9 8.9 Phosphorus 2.0 L 2.2 L Magnesium 1.5 L Total Bilirubin 0.5 AST 19 ALT 9 L Alkaline Phosphatase 75 Total Protein 6.0 Albumin 3.9 3.8 Globulin 2.2 L Albumin/Globulin Ratio 1.7 Quality Measures Quality Measures none Assessment & Plan Assessment Current Active Medications: Generic Name Dose Route Start Last Admin Trade Name Freq PRN Reason Stop Dose Admin Acetaminophen 650 mg 02/08/25 21:45 Acetaminophen 325 Mg Tablet PO 03/10/25 21:44 Q6H PRN Fever >100.4 or pain Protocol Hydrocodone Bitart/Acetaminophen 1 tab 02/08/25 21:45 02/09/25 23:51 Hydrocodone/Apap 5/325 Tablet PO 02/13/25 21:44 1 tab Q4HR PRN Administration PAIN SCALE 4-10(Mod-Sev Dextrose 25 ml 02/08/25 21:45 Dextrose 50%-Water Inj 50 Ml Syringe IV 03/10/25 21:44 Q15MIN PRN BG 50-70 responsive npo pt Dextrose 50 ml 02/08/25 21:45 Dextrose 50%-Water Inj 50 Ml Syringe IV 03/10/25 21:44 Q15MIN PRN BG <50 OR BG <70 & pt unresponsive Glucagon 1 mg 02/08/25 21:45 Glucagon Inj 1 Mg Vial IM Q15MIN PRN BG <70, and no IV access Heparin Sodium (Porcine) 5,000 unit 02/09/25 09:00 02/10/25 08:47 Heparin Sod Inj 5000 Unit/Ml Vial SC 02/23/25 08:59 5,000 unit Q12HR AGA Administration Hydralazine HCl 10 mg 02/08/25 22:31 02/10/25 05:05 Hydralazine Inj 20 Mg/Ml Vial IVP 03/10/25 22:30 10 mg Q6HR PRN Administration SBP > 180 or DBP>100 Ciprofloxacin/Dextrose 400 mg in 200 mls @ 200 mls/hr 02/09/25 09:00 02/10/25 08:50 Cipro Ivpb IV 02/16/25 08:59 200 mls/hr Q12HR AGA Administration Metronidazole 500 mg in 100 mls @ 200 mls/hr 02/09/25 06:00 02/10/25 05:04 Flagyl 500 Mg Iv IV 02/16/25 05:59 200 mls/hr Q8HR AGA Administration Potassium Chloride 10 meq in 100 mls @ 100 mls/hr 02/10/25 08:22 02/10/25 08:49 Kcl Ivpb IV 02/10/25 14:21 100 mls/hr Q1H AGA Administration Magnesium Sulfate 4 gm in 50 mls @ 12.5 mls/hr 02/10/25 08:26 02/10/25 08:50 Magnesium Sulfate Ivpb IV 02/10/25 12:25 12.5 mls/hr X1 ONE Administration Insulin Human Lispro 0 unit 02/09/25 07:30 02/10/25 07:43 Insulin Lispro (Admelog) 1 Unit/0.01 Ml Unit SC 03/11/25 07:29 Not Given AC AGA Protocol Ondansetron HCl 4 mg 02/08/25 21:45 Ondansetron Inj 2 Mg/Ml Inj 2 Ml IVP 03/10/25 21:44 Q6H PRN NAUSEA OR VOMITING Protocol Polyethylene Glycol 17 gm 02/09/25 16:15 02/10/25 08:47 Polyethylene Glycol 17 Gm Packet PO 03/11/25 16:14 17 gm QDAY AGA Administration Sennosides 1 tab 02/09/25 16:04 02/09/25 16:22 Senna/Docusate Sod 1 Tab Tablet PO 03/11/25 16:03 1 tab QDAY PRN Administration CONSTIPATION Protocol Plan Mr. Fields is a 59 year old male with a history of HFpEF (EF 55-60% 2022), HTN, T2DM, CKD stage III, and CVA who presented to [facility] ED on 02/08 for 2-3 days of constipation and rectal pain. The patient was admitted for proctitis and PAMELLA on CKD. #Proctitis #Constipation Patient presented to ED with anal pain and constipation for the past 2 to 3 days. Patient's anus was tender to touch and noted to be inflamed in ED and on admission. CT imaging obtained in the ED showed a rectal wall that was diffusely and significantly thickened. Loose stool was noted to be surrounding the anus. 80 started patient on ciprofloxacin and metronidazole. ? Continue ciprofloxacin 400 mg IV every 12 hours [02/08--] ? Continue metronidazole 500 mg IV every 8 hours [02/08--] ? GI consulted, appreciate recommendations ? Coloscopy planned for 02/10 ? Patient put on clear liquid diet with renal, cardiac, and consistent low-carb modifications ? Blood culture collected 02/08, pending results ? [place] 5/325 as needed for pain #PAMELLA on CKD stage III, likely prerenal Patient presented to the ED with BUN 43, creatinine 2.3, GFR 32. Patient has a known history of CKD stage III. Reviewed previous renal ultrasound imaging, which showed mild to moderate bilateral renal parenchyma scar formation and no hydronephrosis, which supports CKD. ? Continue strict I's and O's ? Avoid nephrotoxic medications ? Renally dose medications ? Monitor daily labs ? Patient made urine on 02/09 in the AM #Hypokalemia #Hypophosphatemia #Hypomagnesemia Patient presented to ED with potassium of 3.0, which later decreased to 2.6 on 02/09 a.m. labs. Patient also had phosphorus of 2.3. ? Potassium replenished on 02/09 with potassium chloride tablet 40 mill equivalents and started potassium chloride IV 60 mill equivalents. Also replenished 02/10. ? Magnesium replenished on 02/10 with magnesium sulfate ? Ordered renal panel for afternoon 02/09 & 02/10 ? Will continue to monitor with daily labs #Hypertensive urgency #Primary Hypertension Patient has a history of hypertension and hypertensive urgency. In the ED, the patient had a blood pressure of 186/101. ? Continue hydralazine 10 mg every 6 hours as needed if SBP >180 or DBP > 100 ? Will continue to monitor #HFpEF, EF 55-60% (2022) Patient has a history of heart failure that was initially managed in 2022. The patient had received an echocardiogram in 2022, which showed normal LV size and function, estimated ejection fraction of 55 to 60%, grade 2 diastolic dysfunction and mild LVH. ? Continue to monitor patient, pending med rec #Non-insulin dependent type 2 diabetes mellitus Patient has a history of diabetes. A1c of 6.5% on 02/09/2025. Pt takes Januvia 50mg and trulicity 0.75mg at home - Insulin sliding scale ordered - Hypoglycemia protocol ordered - Acu-checks ACHS #CVA with LUE defects, by history Patient has history of CVA 1 year ago without residual deficits. Patient does not recall the medications he is taking. - Pending home med rec DVT Prophylaxis: Heparin GI Prophylaxis: N/A Bowel: N/A Diet: Carbohydrate consistent, cardiac, renal, clear liquid [place]: N/A Lines: Peripheral IV Antibiotics: Ciprofloxacin and Metronidazole (02/08--) Code Status: FULL Reason for Hospitalization: Proctitis and PAMELLA Other Barriers to Discharge: Colonoscopy Patient plan of care was discussed with the senior resident Dr. Talley (PGY-2) and attending physician Dr. Galindo. Rosendo Ramirez, PGY1 Attending Provider Attestation/Addendum Ada, Katherine Galindo, , attest that I was physically present for the alan portions of the service and evaluated the patient with the resident and I reviewed and discussed the case with the resident and agree with the resident's findings and plans of care as documented above Patient seen and evaluated this a.m. Patient states that he is feeling much better today. He denies any rectal pain today. He is currently undergoing colon prep with [facility]. Scheduled tonight for colonoscopy. Will follow-up with results. He denies any family or personal history of colon cancer. He does admit to some unintentional weight loss. However, no change in appetite. Patient otherwise denies any chest pain, shortness of breath, nausea or vomiting. H&H otherwise stable.
--- NOTE | 2025-02-10 11:09 | PC.NURSE ---
Spoke with Chantelle from Endo at [phone] gave her a report for patient.
[2025-02-10 12:12] LABS: OBS Performed By herns4; OBS QC OK? Yes; Occult Blood, Stool Negative (Negative)
[2025-02-10 12:55] LABS: Stool for WBCs Negative (Negative)
[2025-02-10 16:11] LABS: Anion Gap 15 (7-16); BUN/Creatinine Ratio 10 Ratio (12-20); Blood Urea Nitrogen 16 mg/dL (9-23); Calcium 8.8 mg/dL (8.3-10.6); Carbon Dioxide 17.7 mMol/L (20.0-31.0); Chloride 103 mMol/L (98-107); Creatinine (Component) 1.6 mg/dL (0.6-1.3); Estimated Creatinine Clearance 51.3 mL/min (>60); Glucose 79 mg/dL (74-106); Magnesium 2.3 mg/dL (1.6-2.6); Osmolality,Calculated 272 (275-295); Potassium 4.2 mMol/L (3.4-5.1); Sodium 136 mMol/L (136-145); eGFR 49 See Note
--- NOTE | 2025-02-10 21:47 | SUR.PHASEI ---
Pt. arrived to recovery via gurney, VSS, no c/o pain or nausea, IV flushed and patent, lung sounds diminished at bases, equal expansion len., report received from Milan CALLEJAS.
--- NOTE | 2025-02-10 22:15 | SUR.PHASEI ---
Pt. transferred to room 366 via TEAGAN davalos, no c/o pain or nausea, pt. sitting up tolerating jello and pudding. Markus CALLEJAS assumed care of pt.
[2025-02-11] VITALS (8 sets, daily range): BP systolic 105–138; BP diastolic 54–85; PULSE 65–100; RESP 18–19; TEMP 36.2–36.8; O2SAT 92–96
[2025-02-11] MEDS: metroNIDAZOLE/NS 500 MG IVPB 500 MG/100 ML BAG 200 MG IV ×2 (05:22→13:22)
[2025-02-11 06:11] LABS: Basophils # (Auto) 0.1 Thou/mm3 (0.0-0.2); Basophils % (Auto) 1 % (0-2.5); Eosinophils # (Auto) 0.5 Thou/mm3 (0.0-0.5); Eosinophils % (Auto) 4 % (0-10); Hematocrit 38.8 % (41.0-53.0); Hemoglobin 13.3 g/dL (13.5-16.0); Immature Granulocytes Auto 0.03 Thou/mm3 (0.00-0.00); Lymphocytes # (Auto) 2.1 Thou/mm3 (1.0-4.8); Lymphocytes % (Auto) 18 % (10-50); Mean Corpuscular HGB Conc 34.3 g/dl (31.0-37.0); Mean Corpuscular Hemoglobin 29.2 pg (25.0-35.0); Mean Corpuscular Volume 85 fL (80-100); Monocytes # (Auto) 0.8 Thou/mm3 (0.0-0.8); Monocytes % (Auto) 7 % (0-12); Neutrophils # (Auto) 8.0 Thou/mm3 (1.8-7.7); Neutrophils % (Auto) 70 % (37-80); Nucleated Red Blood Cell # 0.00 Thou/mm3 (0.00-0.00); Nucleated Red Blood Cell % 0 /100 WBC (0); Platelet Count 320 Thou/mm3 (140-440); RDW Standard Deviation 40.2 fL (35.1-43.9); Red Blood Count 4.56 Miln/mm3 (4.50-5.90); White Blood Count 11.4 Thou/mm3 (3.8-10.6)
[2025-02-11 06:51] LABS: Alanine Aminotransferase < 7 U/L (10-49); Albumin, Serum 3.5 gm/dL (3.5-5.0); Albumin/Globulin Ratio 1.7 (1.2-2.2); Alkaline Phosphatase 77 U/L (46-116); Anion Gap 12 (7-16); Aspartate Amino Transferase 14 U/L (0-34); BUN/Creatinine Ratio 14 Ratio (12-20); Bilirubin,Total 0.3 mg/dL (0.3-1.2); Blood Urea Nitrogen 26 mg/dL (9-23); Calcium 8.5 mg/dL (8.3-10.6); Calcium (Corrected) 8.9 mg/dL (8.5-10.1); Carbon Dioxide 24.9 mMol/L (20.0-31.0); Chloride 103 mMol/L (98-107); Creatinine (Component) 1.8 mg/dL (0.6-1.3); Estimated Creatinine Clearance 45.6 mL/min (>60); Globulin 2.1 gm/dL (2.3-3.5); Glucose 129 mg/dL (74-106); Magnesium 2.2 mg/dL (1.6-2.6); Osmolality,Calculated 286 (275-295); Phosphorous 1.8 mg/dL (2.4-5.1); Potassium 2.9 mMol/L (3.4-5.1); Sodium 140 mMol/L (136-145); Total Protein 5.6 gm/dL (5.7-8.2); eGFR 43 See Note
[2025-02-11] MEDS: FOLIC ACID 1 MG TABLET PO (09:30)
[2025-02-11] MEDS: METOPROLOL TARTRATE 25 MG TABLET PO (09:30)
[2025-02-11] MEDS: POLYETHYLENE GLYCOL 17 GM PACKET PO (09:31)
[2025-02-11] MEDS: HEPARIN SOD INJ 5000 UNIT/ML VIAL SC (09:31)
[2025-02-11] MEDS: POTASSIUM CHLORIDE 10% 20 MEQ/15 ML UDC 40 MEQ PO (09:31)
[2025-02-11] MEDS: CIPROFLOXACIN/D5w 400 MG IVPB 400 MG/200 ML BAG 200 MG IV (09:31)
--- NOTE | 2025-02-11 10:18 | PC.NURSE ---
Called and spoke with Dr. Talley about discharge order, notified him that per hospital standards patients must be discharged within 2 hours of discharge order, but pt potassium level this AM was 2.9, and that patient got only 40mEq of oral KCl, and that pt is currently running KPhos and will for the next 6 hours, so discharge order needs to be changed to start this afternoon. Also asked if MD team intended to redraw potassium to check and make sure patient stabilizes before discharge, Dr. Talley stated he would order redraw. RN clarified and read back discussion decision to change discharge order for approximately 1600 and a potassium redraw, MD agreed. Dr. Talley stated he would put in the orders.
--- NOTE | 2025-02-11 10:59 | PC.SS ---
Follow up note: Dr. Head's recommendations are pending. SS met with pt to discuss dc plan. Patient's choice is to return home upon dc. Pt states he has been ambulating independently. Pt states his brother will provide transportation.
[2025-02-11] MEDS: POTASSIUM PHOS 22.5 MMOL in SODIUM CHLORIDE 0.9% 500 ML 500 ML 82.778 MMOL IV (11:25)
--- NOTE | 2025-02-11 12:13 | PC.SS ---
SS met with pt to confirm d/c to home. Pt states his brother will be providing transport. SS has faxed SS referral. SS provided pt with [facility]. SS spoke to his sister who is aware. Pt does not have preference for Home Health. Pt states he followed up with his PCP, Charly Reeves from [facility] around January 18, 2025.
--- NOTE | 2025-02-11 13:23 | PC.PT ---
PT eval only. Patient was xI with bed mobility, transfers, and ambulation. Patient is safe to ambulate xI in his room and to the bathroom. Patient will need 1 staff assist in the halls for safety. RN made aware.
[2025-02-11 14:15] LABS: Albumin, Serum 3.6 gm/dL (3.5-5.0); Anion Gap 9 (7-16); BUN/Creatinine Ratio 12 Ratio (12-20); Blood Urea Nitrogen 26 mg/dL (9-23); Calcium 8.4 mg/dL (8.3-10.6); Calcium (Corrected) 8.7 mg/dL (8.5-10.1); Carbon Dioxide 24.7 mMol/L (20.0-31.0); Chloride 107 mMol/L (98-107); Creatinine (Component) 2.1 mg/dL (0.6-1.3); Estimated Creatinine Clearance 39.1 mL/min (>60); Glucose 139 mg/dL (74-106); Osmolality,Calculated 287 (275-295); Phosphorous 2.5 mg/dL (2.4-5.1); Potassium 4.0 mMol/L (3.4-5.1); Sodium 141 mMol/L (136-145); eGFR 36 See Note
--- NOTE | 2025-02-11 15:22 | ESDS_ITS ---
<Statement entered by Germania Gtz MD - 02/16/25 14:36> I reviewed above note and agree with findings and plans. I have also personally examined the patient with medicine team and went over assessment and plan with medical team including internet media planner and resident physician. <Statement entered by Buffy Talley MD - 02/12/25 12:51> Patient was seen and examined by me personally. I have reviewed the below documentation by the team resident and agree with its findings. Discharge plan was discussed with the attending, Dr. Gtz. Buffy Talley MD Internal Medicine, PGY-2 Planned Discharge Date 02/11/25 DS: Providers Provider Date of admission: 02/08/25 21:45 Primary care physician: Milton Bustamante PA-C Admitting Provider: Courtney Amor MD Attending Provider on Admission: Katherine Galindo DO Consults: 02/08/25 21:49 Consult to Gastroenterology Routine Comment: No prior colonoscopy, rectal wall thickening Consulting Provider: Angela Head 02/10/25 13:51 PT [Referral Physical Therapy] Routine Comment: Patient had new weakness prior to admission Physician Instructions: Attending Provider on DC: Germania Gtz MD Discharging Provider: Germania Gtz MD Anticipated date of discharge: 02/11/25 DS: Diagnosis Problem List Completed Was Problem List Reviewed/Reconciled?: Yes Hospital Course Hospital Course Hospital course: Summary: This patient is a 59-year-old male with a history of HFpEF, (myiasis EF 55 to 60% 2022), HTN, T2DM, CKD stage III, and CVA who presented to [facility] ED on 02/08 after 2 to 3 days of constipation and rectal pain. The patient's anus was tender to touch, erythematous, and loose stool was noted surrounding the anus. CT imaging done in the ED showed a rectal wall that was diffusely and significantly thickened. The patient was admitted for proctitis and PAMELLA on CKD. The patient was put on ciprofloxacin and metronidazole for management of proctitis. GI was consulted for colonoscopy, which showed a continuous area of bleeding ulcerated mucosa with stigmata of recent bleeding in the rectum with biopsy and findings s uggest ulcerated inflammatory proctitis. Blood cultures showed no growth after 48 hours. Patient was started on sulfasalazine, folic acid, and hydrocortisone enemas with low residue diet per recommendations by GI. Patient had multiple electrolyte abnormalities, most consistent was hypokalemia. On 02/11, the patient had improvement in symptoms, stable vitals, and stable potassium after repletion based on afternoon. Patient is medically cleared to be discharged to home with home health. Imaging: CT abdomen pelvis 02/08/2025: Rectal wall is diffusely and significantly th ickened, differential included proctitis, rectal tumor today, recommend direct inspection. Discharge Recommendations: - Please take all medications as prescribed - START oral ciprofloxacin and metronidazole both for 7 more days, end date 02/18 - START sulfasalazine 1 g orally twice daily, folic acid 1 mg orally once daily, and one hydrocortisone enemas rectally twice daily - Hold chlorthalidone and furosemide until you see your PCP provider - START potassium supplements - Continue rest of medications as previously prescribed - Follow up with PCP within one week - Follow up with GI physician outpatient - Please take all medications as prescribed - If your symptoms worsen, please seek immediate medical attention and return to your nearest emergency room. - If you do not have a PCP, you may follow up at the [facility] at [address] [place] [address] [address] [id number], Hospital Diagnoses: #Ulcerated inflammatory proctitis #Constipation #PAMELLA on CKD stage III #Hyperkalemia #Hypophosphatemia #Anemia #Hypertensive urgency #Primary hypertension #HpEF EF 55-60% (2022) #Tni-[id number] type 2 diabetes mellitus #CVA with LUE deficits Case discussed with Attending Physician Dr. Gtz and senior resident Dr Talley PGY-2 Vickie Patel, Internal Medicine PGY-1 Status at Discharge Cognitive/behavioral status at discharge: Stable Functional status at discharge: independent ambulation Time Spent with Patient Time attestation: Total time spent providing and/or coordinating discharge services: Time spent: Greater than 30 minutes Home Health Home Health Referral Orders: 02/11/25 11:00 Home Health Referral Routine Reason For Exam: PT Home-Bound The patient must either because of illness or injury, need the aid of supportive devices such as crutches, canes, wheelchairs, and walkers; the use of special transportation; or the assistance of another person in order to leave their place of residence; OR have a condition such that leaving his or her home is medically contraindicated. In addition, the patient also meets the following criteria: patient is normally unable to leave the home and leaving home requires considerable taxing effort. Addendum to Home Health Certification Practitioner's Certification: I certify that the patient has been under my care in the hospital and the care of attending physician (see below). We had a [id number] encounter on (see date below). My clinical findings indicate that the patient is home bound per the above criteria and the Home Health Services noted in these orders are medically necessary. The primary reason for the [id number] encounter is related to the fact that the patient requires home health services. Date Certifying [id number] Physician Encounter: 02/18/25 Physician's Name who will Assume Oversight for Services: Milton Bustamante Physician's Phone No.who will Assume Oversight for Service: FURNITURE FINISHER HELPER - Community Resources: No PT to Evaluate: Yes PT to evaluate and provide a treatmnet plan to increase patient's mobility and strength. Wound Care: No IV Therapy: No RN Safety Evaluation: Yes RN to evaluate and create a plan of care that will produce positive outcomes. Palliative Treatment: No Palliative treatment and evaluate the need for hospice. Home Health Aide - Personal Care: No Home Health Aide to assist with any ADL's. Exam Vital Signs Temp Pulse Resp BP Pulse Ox O2 Del Method O2 Flow Rate 97.4 F 78 18 127/54 L 96 Room Air 3 02/11/25 12:00 02/11/25 12:41 02/11/25 12:02/11/25 12:41 02/11/25 12:02/11/25 12:02/10/25 21:40 Narrative Exam GENERAL: AOx3, no acute distress HEENT: NC/AT, mucous membranes moist, bilateral sclera anicteric CARDIOVASCULAR: regular rate and rhythm, S1/S2 present, no murmurs appreciated PULMONARY: clear to auscultation bilaterally, no rales/rhonchi/wheezes ABDOMINAL: soft, non-distended, no rebound/guarding, bowel sounds present, no abdominal tenderness SKIN: warm and dry, intact, no rashes, perianal area non erythematous and nontender NEURO: CN II-XII grossly intact, no focal deficits, alert, following commands Discharge Plan Plan Patient Disposition: Home w/HOME HEALTH Patient condition on transfer: Stable Care Plan Goals: -Continue Hydrocortisone Enema and Sulfasalazine for Proctitis and the ulcer, follow up biopsy with PCP. -Complete antibiotic therapy with Ciprofloxacin and Flagyl for 7 more days -Obtain GI Referral O/P -Hold Chlorthalidone and Lasix F/u with PCP in 1-2weeks -If you don't have a PCP follow-up in [facility] in 1 to 2 weeks. Call [phone] to make an appointment Address: [facility], [address], [address], [place], [address] -Return to ED if symptoms return or worsen. Prescriptions/Referrals Prescriptions/Med Rec: New sulfasalazine 500 mg Tablet 1,000 mg PO BID 15 Days Qty: 60 0RF hydrocortisone 100 mg/60 mL Enema 100 mg [place] BID 7 Days Qty: 840 0RF Z-Wgxk-[id number] 250 mg tablet 1 tab PO BID 3 Days Qty: 6 0RF potassium chloride 10 mEq tablet extended release 10 meq PO QDAY 7 Days Qty: 7 0RF ciprofloxacin HCl 500 mg tablet 500 mg PO Q12H 7 Days Qty: 14 0RF metronidazole 500 mg tablet 500 mg PO Q6H 7 Days Qty: 28 0RF Continued atorvastatin 40 mg tablet 40 mg PO HS Patient Comments: TAKE 1 TABLET BY MOUTH EVERY DAY Trulicity 0.75 mg/0.5 mL pen injector 0.75 mg SUBCUT QWEEK Patient Comments: INJECT 0.75 MG SUBCUTANEOUSLY WEEKLY sertraline 100 mg tablet 100 mg PO QDAY Patient Comments: TAKE 1 TABLET BY MOUTH EVERY DAY hydralazine 10 mg tablet 10 mg PO QID Patient Comments: TAKE 1 TABLET BY MOUTH FOUR TIMES A DAY FOR 30 DAYS. TAKE WITH FOOD aspirin 81 mg tablet,chewable 81 mg PO QDAY Patient Comments: CHEW AND SWALLOW 1 TABLET BY MOUTH EVERY DAY 90 metoprolol tartrate 25 mg tablet 25 mg PO BID Patient Comments: TAKE 1 TABLET BY MOUTH TWICE A DAY WITH FOOD FOR 30 DAYS Januvia 50 mg tablet 50 mg PO QDAY Patient Comments: TAKE 1 TABLET BY MOUTH EVERY DAY fluticasone furoate-vilanterol 100-25 mcg/dose blister with device 1 inh INHALATION QDAY Patient Comments: INHALE 1 PUFF BY MOUTH INTO THE LUNGS EVERY DAY FOR 30 DAYS Jardiance 25 mg tablet 25 mg PO QDAY Patient Comments: TAKE 1 TABLET BY MOUTH EVERY DAY FOR 30 DAYS Held chlorthalidone 50 mg tablet 50 mg PO QDAY Hold Instructions: Resume on 02/18/25. Follow up with PCP before resuming Patient Comments: TAKE 1 TABLET BY MOUTH IN THE MORNING WITH FOOD furosemide 40 mg tablet 40 mg PO QDAY Hold Instructions: Resume on 02/18/25. Follow up with PCP before resuming Patient Comments: TAKE 1 TABLET BY MOUTH EVERY DAY Referrals: Buffy Talley MD [Resident] - Milton Bustamante PA-C [Primary Care Provider] - Patient/Caregiver Discharge Instructions Discharge Activity: activity as tolerated Education Materials: Bleeding Gastrointestinal, ED Diverticulitis Print Language: Sami Stand Alone Forms: Nilda Award Info., Patient Portal Info Letter Discharge Order Discharge Orders: Discharge (Routine); Ordered 02/11/25 Ordered By: Abdulaziz Hutson Quality Discharge Quality Measures VTE prophylaxis
--- NOTE | 2025-02-12 11:31 | PC.CM ---
HH refereral sent. Pt did not have preferences.
--- NOTE | 2025-02-13 13:06 | PC.CC ---
4 HH agencies declined the pt. No accepting HH agency at this time.
--- NOTE | 2025-02-15 15:06 | PC.CM ---
[facility] has accepted patient. They will open patient on 02/17 per patient's request.
[2025-02-16 15:35] LABS: Source STOOL
[2025-02-17 06:27] LABS: Calprotectin, Stool* 38 mcg/g
== END 2025-02-11 16:51 | disposition home health service (06) | DRG 254 ==
LOC: SERX 21:04 → SERHOLD 22:39 → S3NX 02-09 06:11
PROVIDERS: Physician Assistant; Specialist; Admitting Provider Student in an Organized Health Care Education/Training Program; Emergency Provider Emergency Medicine; PCP Physician Assistant; Visit Provider Internal Medicine
PROC: 0DJD8ZZ Inspection of Lower Intestinal Tract, Via Natural or Artificial Opening Endoscopic (ICD-10-PCS; CPT 45378; principal; 2025-02-10 20:30)
DX: K62.89 Other specified diseases of anus and rectum (principal); N17.9 Acute kidney failure, unspecified; I13.0 Hypertensive heart and chronic kidney disease with heart failure and stage 1 through stage 4 chronic kidney disease, or unspecified chronic kidney disease; I50.32 Chronic diastolic (congestive) heart failure; K59.00 Constipation, unspecified; E11.22 Type 2 diabetes mellitus with diabetic chronic kidney disease; N18.30 Chronic kidney disease, stage 3 unspecified; E83.39 Other disorders of phosphorus metabolism; K82.8 Other specified diseases of gallbladder; E87.5 Hyperkalemia; E83.42 Hypomagnesemia; E87.6 Hypokalemia; F17.200 Nicotine dependence, unspecified, uncomplicated; I16.0 Hypertensive urgency; R34 Anuria and oliguria; D64.9 Anemia, unspecified; Z86.73 Personal history of transient ischemic attack (TIA), and cerebral infarction without residual deficits; Z79.84 Long term (current) use of oral hypoglycemic drugs
CPT/HCPCS: 36415; 74176; 80048; 80053; 80069; 80307; 81001; 82270; 83036; 83690; 83735; 83993; 84100; 84145; 84443; 85025; 85610; 85730; 87040; 87177; 87205; 87209; 96361; 96365; 96366; 96375; 97162; 99285; J0360; J0696; J0744; J1200; J1644; J2250; J3010; J3475; J3480; J3490; J7030; J7120; J7999; A9270; J1836

== ENCOUNTER 2025-02-24 11:05 | Emergency (ER) | payer MEDICAID, SELFPAY ==
[2025-02-24 11:16] VITALS: PULSE 66; RESP 16; BMI 27.2
[2025-02-24 11:17] VITALS: BP 134/87; PULSE 61; RESP 18; TEMP 36.6; O2SAT 95
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
--- NOTE | 2025-02-24 12:35 | XR_ITS ---
Examination: AP chest single view Technique one AP portable upright chest single view Date and time: February 24, 2025 1310 hours Comparison July 15, 2022 INDICATIONS: Chest pain weakness beginning today. FINDINGS: Accentuation basilar bronchovascular markings. Normal heart size. No lobar pneumonia or pulmonary edema. Prominent osteopenia. IMPRESSION: Mild basilar bronchitis pattern
[2025-02-24 12:46] VITALS: BP 134/87; PULSE 57; RESP 18; TEMP 36.6; O2SAT 97
[2025-02-24 13:07] LABS: Basophils # (Auto) 0.1 Thou/mm3 (0.0-0.2); Basophils % (Auto) 1 % (0-2.5); Eosinophils # (Auto) 0.4 Thou/mm3 (0.0-0.5); Eosinophils % (Auto) 3 % (0-10); Hematocrit 44.8 % (41.0-53.0); Hemoglobin 14.7 g/dL (13.5-16.0); Immature Granulocytes Auto 0.06 Thou/mm3 (0.00-0.00); Lymphocytes # (Auto) 2.1 Thou/mm3 (1.0-4.8); Lymphocytes % (Auto) 17 % (10-50); Mean Corpuscular HGB Conc 32.8 g/dl (31.0-37.0); Mean Corpuscular Hemoglobin 28.5 pg (25.0-35.0); Mean Corpuscular Volume 87 fL (80-100); Monocytes # (Auto) 0.7 Thou/mm3 (0.0-0.8); Monocytes % (Auto) 6 % (0-12); Neutrophils # (Auto) 9.1 Thou/mm3 (1.8-7.7); Neutrophils % (Auto) 73 % (37-80); Nucleated Red Blood Cell # 0.00 Thou/mm3 (0.00-0.00); Nucleated Red Blood Cell % 0 /100 WBC (0); Platelet Count 478 Thou/mm3 (140-440); RDW Standard Deviation 42.7 fL (35.1-43.9); Red Blood Count 5.15 Miln/mm3 (4.50-5.90); White Blood Count 12.4 Thou/mm3 (3.8-10.6)
[2025-02-24 13:19] LABS: INR 1.1 (0.9-1.3); Prothrombin Time 11.5 Seconds (9.0-12.2)
[2025-02-24 13:27] LABS: T4 (Thyroxine) 7.3 mcg/dL (4.5-10.9)
[2025-02-24 13:29] LABS: Alanine Aminotransferase 15 U/L (10-49); Albumin, Serum 4.4 gm/dL (3.5-5.0); Albumin/Globulin Ratio 1.7 (1.2-2.2); Alkaline Phosphatase 75 U/L (46-116); Anion Gap 10 (7-16); Aspartate Amino Transferase 20 U/L (0-34); BUN/Creatinine Ratio 18 Ratio (12-20); Bilirubin,Total 0.4 mg/dL (0.3-1.2); Blood Urea Nitrogen 41 mg/dL (9-23); Calcium 9.9 mg/dL (8.3-10.6); Calcium (Corrected) 9.9 mg/dL (8.5-10.1); Carbon Dioxide 28.4 mMol/L (20.0-31.0); Chloride 101 mMol/L (98-107); Creatine Kinase 34 U/L (34-171); Creatinine (Component) 2.3 mg/dL (0.6-1.3); Estimated Creatinine Clearance 35.7 mL/min (>60); Globulin 2.6 gm/dL (2.3-3.5); Glucose 92 mg/dL (74-106); Osmolality,Calculated 287 (275-295); Potassium 3.2 mMol/L (3.4-5.1); Sodium 139 mMol/L (136-145); Thyroid Stimulating Hormone 2.33 uIU/mL (0.55-4.78); Total Protein 7.0 gm/dL (5.7-8.2); Troponin I < 0.020 ng/mL (0.0-0.045); eGFR 32 See Note
[2025-02-24 14:01] LABS: Collection Type, Urine Clean Catch; Squamous Epithelial Cell,Urine 0 /hpf (0-5)
[2025-02-24 14:14] LABS: Amphetamine/Methamp Scrn,U Negative (Negative); Barbiturate Screen,Urine Negative (Negative); Benzodiazepines Screen,Urine Negative (Negative); Benzoylecgonine Screen, Ur Negative (Negative); Fentanyl Screen,Urine Negative (Negative); Opiate Screen,Urine Negative (Negative); THC Screen,Urine Negative (Negative)
[2025-02-24 15:05] LABS: Bilirubin,Urine Negative (Negative); Blood,Urine Negative (Negative); Clarity,Urine Clear (Clear/Hazy); Color,Urine Yellow (Lt Yel-Yel); Culture Indicated,Urine Not Indicated; Glucose, Urine 3+ (Negative); Hyaline Casts,Urine < 1 /hpf (0-1); Ketones,Urine Negative (Negative); Leukocyte Esterase,Urine Negative (Negative); Nitrite,Urine Negative (Negative); PH,Urine 6.5 (5.0-7.0); Protein,Urine Negative (Neg - Trace); RBC,Urine 1 /hpf (0-3); Specific Gravity,Urine 1.022 (1.001-1.035); Urobilinogen,Urine Negative mg/dL (0.0-1.0); WBC,Urine < 1 /hpf (0-5)
[2025-02-24] MEDS: RINGERS LACTATED 500 ML 500 ML IV (15:17)
[2025-02-24 16:34] VITALS: BP 156/82; PULSE 58; RESP 18; TEMP 36.6; O2SAT 97
== END 2025-02-24 16:42 | disposition home or self-care (01) ==
PROVIDERS: Emergency Provider Emergency Medicine
DX: N17.9 Acute kidney failure, unspecified (principal); E87.6 Hypokalemia; N18.9 Chronic kidney disease, unspecified; D72.829 Elevated white blood cell count, unspecified; D75.839 Thrombocytosis, unspecified; I13.0 Hypertensive heart and chronic kidney disease with heart failure and stage 1 through stage 4 chronic kidney disease, or unspecified chronic kidney disease; E11.22 Type 2 diabetes mellitus with diabetic chronic kidney disease; I50.9 Heart failure, unspecified; E78.00 Pure hypercholesterolemia, unspecified; I69.354 Hemiplegia and hemiparesis following cerebral infarction affecting left non-dominant side; F17.200 Nicotine dependence, unspecified, uncomplicated; Z87.828 Personal history of other (healed) physical injury and trauma; Z79.899 Other long term (current) drug therapy; Z79.85 Long-term (current) use of injectable non-insulin antidiabetic drugs; Z79.82 Long term (current) use of aspirin; Z79.84 Long term (current) use of oral hypoglycemic drugs; Z79.51 Long term (current) use of inhaled steroids
CPT/HCPCS: 36415; 71045; 80053; 80307; 81001; 82550; 84436; 84443; 84484; 85025; 85610; 99283; J7120; A9270

== ENCOUNTER → 2025-03-01 | Outpatient (BNVA) | payer MEDICAID, SELFPAY | END | disposition home or self-care (01) | PROVIDERS: PCP Nurse Practitioner Family; Referring Provider Nurse Practitioner Family; Visit Provider Nurse Practitioner Family | DX: Z00.00 Encounter for general adult medical examination without abnormal findings (principal); E11.22 Type 2 diabetes mellitus with diabetic chronic kidney disease; I13.0 Hypertensive heart and chronic kidney disease with heart failure and stage 1 through stage 4 chronic kidney disease, or unspecified chronic kidney disease; N18.9 Chronic kidney disease, unspecified; I50.9 Heart failure, unspecified; Z86.73 Personal history of transient ischemic attack (TIA), and cerebral infarction without residual deficits; K62.89 Other specified diseases of anus and rectum; Z91.81 History of falling; R53.83 Other fatigue; R53.1 Weakness | CPT/HCPCS: 83036; 99215 ==

== ENCOUNTER → 2025-03-16 | Outpatient (BNVA) | payer MEDICAID, SELFPAY | END | disposition home or self-care (01) | PROVIDERS: PCP Nurse Practitioner Family; Referring Provider Nurse Practitioner Family; Visit Provider Nurse Practitioner Family | DX: Z00.01 Encounter for general adult medical examination with abnormal findings (principal); I10 Essential (primary) hypertension; Z13.220 Encounter for screening for lipoid disorders; Z86.73 Personal history of transient ischemic attack (TIA), and cerebral infarction without residual deficits; E11.9 Type 2 diabetes mellitus without complications; R53.83 Other fatigue; Z71.85 Encounter for immunization safety counseling; Z23 Encounter for immunization | CPT/HCPCS: 90471; 90677; 90715; 93005; 99173; 99215; G0009 ==

== ENCOUNTER → 2025-03-23 | Outpatient (BNVA) | payer MEDICAID, SELFPAY | END | disposition home or self-care (01) | PROVIDERS: PCP Nurse Practitioner Family; Referring Provider Nurse Practitioner Family; Visit Provider Nurse Practitioner Family | DX: Z71.2 Person consulting for explanation of examination or test findings (principal); Z86.73 Personal history of transient ischemic attack (TIA), and cerebral infarction without residual deficits; I50.9 Heart failure, unspecified; E11.22 Type 2 diabetes mellitus with diabetic chronic kidney disease; I13.0 Hypertensive heart and chronic kidney disease with heart failure and stage 1 through stage 4 chronic kidney disease, or unspecified chronic kidney disease; N18.31 Chronic kidney disease, stage 3a | CPT/HCPCS: 99213; 99214 ==

== ENCOUNTER → 2025-03-30 | Outpatient (BNVA) | payer MEDICAID, SELFPAY | END | disposition home or self-care (01) | PROVIDERS: PCP Nurse Practitioner Family; Referring Provider Nurse Practitioner Family; Visit Provider Nurse Practitioner Family | DX: Z71.2 Person consulting for explanation of examination or test findings (principal); E11.22 Type 2 diabetes mellitus with diabetic chronic kidney disease; N18.31 Chronic kidney disease, stage 3a | CPT/HCPCS: 99214 ==

== ENCOUNTER → 2025-04-22 | Outpatient (BNVA) | payer MEDICAID, SELFPAY | END | disposition home or self-care (01) | PROVIDERS: PCP Internal Medicine; Referring Provider Internal Medicine; Visit Provider Internal Medicine | DX: E11.22 Type 2 diabetes mellitus with diabetic chronic kidney disease (principal); I13.0 Hypertensive heart and chronic kidney disease with heart failure and stage 1 through stage 4 chronic kidney disease, or unspecified chronic kidney disease; N18.31 Chronic kidney disease, stage 3a; I50.9 Heart failure, unspecified; E78.5 Hyperlipidemia, unspecified; F32.A Depression, unspecified; Z23 Encounter for immunization | CPT/HCPCS: 90471; 90686; 99214 ==

== ENCOUNTER → 2025-06-10 | Outpatient (BNVA) | payer MEDICAID, SELFPAY | END | disposition home or self-care (01) | PROVIDERS: PCP Internal Medicine; Referring Provider Internal Medicine; Visit Provider Internal Medicine | DX: E11.22 Type 2 diabetes mellitus with diabetic chronic kidney disease (principal); I13.0 Hypertensive heart and chronic kidney disease with heart failure and stage 1 through stage 4 chronic kidney disease, or unspecified chronic kidney disease; N18.31 Chronic kidney disease, stage 3a; I50.9 Heart failure, unspecified; F32.A Depression, unspecified; E78.5 Hyperlipidemia, unspecified | CPT/HCPCS: 99213 ==

== ENCOUNTER → 2025-06-14 | Outpatient (BNVA) | payer MEDICAID, SELFPAY | END | disposition home or self-care (01) | PROVIDERS: PCP Nurse Practitioner Primary Care; Referring Provider Nurse Practitioner Primary Care; Visit Provider Nurse Practitioner Primary Care | DX: Z76.0 Encounter for issue of repeat prescription (principal); E11.9 Type 2 diabetes mellitus without complications; I10 Essential (primary) hypertension | CPT/HCPCS: 99212; G0463 ==

== ENCOUNTER → 2025-07-01 | Outpatient (BNVA) | payer MEDICAID, SELFPAY | END | disposition home or self-care (01) | PROVIDERS: PCP Nurse Practitioner Family; Referring Provider Nurse Practitioner Family; Visit Provider Nurse Practitioner Family | DX: Z71.2 Person consulting for explanation of examination or test findings (principal); E78.5 Hyperlipidemia, unspecified; Z86.73 Personal history of transient ischemic attack (TIA), and cerebral infarction without residual deficits; I13.0 Hypertensive heart and chronic kidney disease with heart failure and stage 1 through stage 4 chronic kidney disease, or unspecified chronic kidney disease; E11.22 Type 2 diabetes mellitus with diabetic chronic kidney disease; N18.31 Chronic kidney disease, stage 3a; I50.9 Heart failure, unspecified | CPT/HCPCS: 99214 ==

== ENCOUNTER → 2025-07-06 | Outpatient (BNVA) | payer MEDICAID, SELFPAY | END | disposition home or self-care (01) | PROVIDERS: PCP Nurse Practitioner Family; Referring Provider Nurse Practitioner Family; Visit Provider Nurse Practitioner Family | DX: Z71.2 Person consulting for explanation of examination or test findings (principal); E87.5 Hyperkalemia | CPT/HCPCS: 99213 ==